=== PATIENT | male | born 1950 | race Caucasian/White ===

== ENCOUNTER → 2021-12-20 11:02 | Outpatient (BNVA) | payer MEDICARE, OTHER, SELFPAY | PROVIDERS: PCP Nurse Practitioner; Referring Provider Family Medicine; Visit Provider Podiatrist Foot & Ankle Surgery | DX: M20.21 Hallux rigidus, right foot (principal); M79.671 Pain in right foot; Z87.891 Personal history of nicotine dependence | CPT/HCPCS: 99204 ==

== ENCOUNTER 2022-02-08 13:51 | Outpatient (CLI) | payer MEDICARE, OTHER, SELFPAY | END 2022-02-08 13:52 | disposition home or self-care (01) | LOC: SPT 13:52 | PROVIDERS: PCP Nurse Practitioner; Visit Provider Podiatrist Foot & Ankle Surgery | DX: Z46.89 Encounter for fitting and adjustment of other specified devices (principal); M20.21 Hallux rigidus, right foot | CPT/HCPCS: 97760; L3030 ==

== ENCOUNTER → 2023-08-14 07:24 | Outpatient (BNVA) | payer MEDICARE, OTHER, SELFPAY | PROVIDERS: PCP Family Medicine; Visit Provider Podiatrist Foot & Ankle Surgery | DX: M20.21 Hallux rigidus, right foot (principal) | CPT/HCPCS: 99213 ==

== ENCOUNTER 2023-10-01 15:07 | Outpatient (CLI) | payer MEDICARE, OTHER, SELFPAY | END 2023-10-01 15:08 | disposition home or self-care (01) | LOC: SPT 15:07 | PROVIDERS: PCP Family Medicine; Visit Provider Podiatrist Foot & Ankle Surgery | DX: Z46.89 Encounter for fitting and adjustment of other specified devices (principal); M20.21 Hallux rigidus, right foot | CPT/HCPCS: L3030 ==